=== PATIENT | female | born 1960 | race Caucasian/White ===

== ENCOUNTER 2016-10-23 19:17 | Inpatient (IN) | payer BC ==
--- NOTE | ~2016-10-23 | DS ---
Discharge Summary [facility] [address] [place]. [address] NAME: HUMAIRA GALVAN : 64 STATUS : DIS IN PAT#: [id number] AGE: 56 ADM/REG DATE : 10/23/16 MR#: [id number] REPORT SERV DATE: 11/01/16 DICTATED BY: ALBARO ARCHER DATE: 10/31/16 REPORT STATUS : Draft TRANSCRIBED BY: MODL DATE: 10/31/16 ADMISSION DATE: 10/23/2016 DISCHARGE DATE: 10/30/2016 REASON FOR ADMISSION: This is a 56-year-old female who presented to the emergency room with fevers, abdominal pain, and distention with a history of inflammatory bowel disease and Crohn's disease, as well as possible ulcerative colitis. She came in with a two-week history of persistent high-grade fevers as well as abdominal pain, bloating, and distention. In the emergency room, CT scan of the abdomen and pelvis which show large amount of semi- formed stool and redundant colon evidence for prior bowel resection. No obstruction. Findings suggested there may be some hypotonicity of the colon and did not appear to be at that time any acute inflammatory event. The patient has a history of J-pouch and proctocolectomy surgery related to her Crohn's disease. DISCHARGE DIAGNOSES: 1. Crohn's/possible ulcerative colitis. 2. Perirectal abscess, too small to drain. 3. Possible ileus. 4. Anemia. HOSPITAL COURSE: 1. Crohn's, possible ulcerative colitis. The patient as mentioned came in with fever of 101.1 with a normal white blood cell count and elevated CRP of 218. She was thought to have possible ileus after KUB on the which show nonspecific mild colonic ileus type pattern noted, and she was made n.p.o. She would then have a followup with MRI of the abdomen and pelvis due to concerns that maybe there was intraabdominal abscess given her history, there would be MRI with finding small perirectal left-sided abscess, small cleft or breakthrough of the external sphincter into the cleft suggest there is a localized fistulous communication, and so therefore, colorectal surgery Dr. Ryan Gonzales was consulted. She would see the patient, and after reviewing imaging with note that it is a less than 1 cm abscess and would be too small to drain, the abscess would later spontaneously rupture on its own. The patient was placed on IV Levaquin, and later transitioned to oral Levaquin. GI would then start the patient on IV corticosteroids given her elevated CRP, history of Crohn's and persistent symptoms and fevers. She would respond immediately to the IV corticosteroids, fevers would cease, her bloating would stop, she began having bowel movements and passing gas. Her diet was advanced and she was transitioned over to oral prednisone, so it was felt that this was some sort of inflammatory bowel flare that her issues were related to. She would complete her antibiotic therapy as well, and the patient was having semi-regular bowel movements and tolerating solid food at the time of discharge. GI would place the patient on short course of oral prednisone to finish up on for 6 more days and would have her followup in 2 to 3 weeks. DISCHARGE CONDITION: Stable. DISCHARGE MEDICATIONS: Discharge Summary [address] [address] NAME: HUMAIRA GALVAN : 64 STATUS : DIS IN PAT#: [id number] AGE: 56 ADM/REG DATE : 10/23/16 MR#: [id number] REPORT SERV DATE: 11/01/16 DICTATED BY: ALBARO ARCHER DATE: 10/31/16 REPORT STATUS : Draft TRANSCRIBED BY: LYNNE DATE: 10/31/16 1. Imuran 50 mg p.o. t.i.d. 2. Pepcid 40 mg p.o. b.i.d. 3. Wellbutrin 300 mg p.o. daily. 4. Spironolactone 100 mg to 200 mg p.o. daily. 5. Vitamin D 50,000 units p.o. every . 6. Probiotic 3 capsules p.o. t.i.d. 7. Hydrocodone 7.5/325, half tab, 4 times a day to slow bowel function. 8. Prophylactic Cipro 500 mg p.o. b.i.d. two weeks on, two weeks off. 9. Advil 400 mg p.o. daily p.r.n. 10.Prednisone 20 mg p.o. daily x2 days, then 10 mg p.o. x2 days, and 5 mg p.o. x2 days, then discontinue. 11.Dulcolax 10 mg suppository per rectum b.i.d. x3 more days. 12.One other important thing to note is that patient KUB findings were still showing ileus gas pattern at the time of discharge; however, the patient's belly was soft, nontender, tolerating oral diet and having bowel movements at the time of discharge. DISCHARGE PLAN: The patient is discharged home, followup with primary care in one to two weeks, and GI in two to three weeks. TDR/MODL Albaro Archer APN / [id number] CC: Jesus Luong M.D. Colleen Schmitt, M.D. Shauna Lorenzo-Rivero, M.D.
--- NOTE | ~2016-10-23 | CN ---
Consultation Report [facility] [address] [place]. [address] NAME: HUMAIRA GALVAN : 64 STATUS : ADM IN PAT#: [id number] AGE: 56 ADM/REG DATE : 10/23/16 MR#: [id number] REPORT SERV DATE: 10/24/16 DICTATED BY: LILLIAN PAZ DATE: 10/24/16 REPORT STATUS : Draft TRANSCRIBED BY: MODL DATE: 10/24/16 GI CONSULTATION DATE OF CONSULTATION: REASON FOR CONSULTATION: Crohn disease, possible exacerbation, and possible ileus. HISTORY OF PRESENT ILLNESS: Ms Galvan is a 56-year-old, white female, very nice lady who is a patient Dr. Maureen Kinney. She has had a history of Crohn disease, has had a proctocolectomy in the past and has J-pouch. She was having ileoscopy done in April 2014, showing ileal ulcers and also perianal fistula. The ileal ulcers were multiple. She has been on azathioprine. She has also been seen by Dr. Toussaint for perianal abscess and has had a perianal fistula. She actually has some setons to the draining areas and Dr. Toussaint has wanted to keep them there. There was concern that she might re-develop the abscesses. The patient reports normally she has four to six stools per day. Over the last couple of weeks, it has decreased to one to two per day and she has got abdominal distention. She had no vomiting. She has had some slight nausea and also there has been viral illness in the family with flu-like symptoms and she felt that she may be developing that. She has had fevers, most recent one was 101.1 in the hospital. Her white count was normal, but she does have an elevated C-reactive protein of 218. The patient reports some abdominal discomfort in the lower abdomen, as well as distention and nausea. She takes Cipro, two weeks on, two weeks off because of the history of fistula and abscess that has been prescribed by Dr. Toussaint. She also recently had a course of clindamycin for Crohn's exacerbation approximately five to six weeks ago through Dr. Kinney's office. The patient has been on Imuran, but stopped taking that a couple of weeks ago when she developed the fevers. PAST MEDICAL HISTORY: Includes Crohn disease, pouchitis, reflux, attention-deficit disorder, perirectal abscess, iron deficiency anemia, TMJ, and basal cell cancer to the skin. PAST SURGICAL HISTORY: Septoplasty, , J-pouch proctocolectomy, and anal sphincteroplasty. MEDICATIONS AT HOME: Includes Tylenol, Imuran which she stopped. Last dose 10/09/2016, Wellbutrin, Cipro, two weeks on, two weeks off, Lomotil, vitamin D, Pepcid, hydrocodone, ibuprofen, and spironolactone. ALLERGIES: INCLUDE SULFA, INAPSINE, LATEX. SHE ALSO REPORTS HAVING INTOLERANCE OF FLAGYL, WHICH CAUSES NEUROPATHY. PHYSICAL EXAMINATION: HEENT: Normocephalic, atraumatic. Extraocular muscles are intact. HEART: Regular without murmur. LUNGS: Clear to auscultation bilaterally without rales or rhonchi. Consultation Report [place] [id number] [facility] [place]. [address] NAME: HUMAIRA GALVAN : 64 STATUS : ADM IN [facility]#: [id number] AGE: 56 ADM/REG DATE : 10/23/16 MR#: [id number] REPORT SERV DATE: 10/24/16 DICTATED BY: LILLIAN PAZ DATE: 10/24/16 REPORT STATUS : Draft TRANSCRIBED BY: LYNNE DATE: 10/24/16 ABDOMEN: Bowel sounds are present, somewhat high-pitched. She has [id number] distention. There is some tenderness in left lower quadrant without rebound or guarding. NEUROLOGIC: She is alert, oriented, and answers questions appropriately. PSYCHIATRIC: Normal mood and affect. RECTAL: Performed. Slight tenderness, but it did not appear stenotic. There was noted a setons placed by Dr. Toussaint. VITAL SIGNS: Blood pressure 103/58, pulse is 98, respirations 16, temperature is 98.2, T- max was 101.1 here. LABORATORY DATA: KUB shows nonspecific ileus. No perforation. CT scan of the abdomen and pelvis was read as large amount of semiformed stools and redundant colon, which she has had a proctocolectomy, so it is small bowel that are seen. White count 5.6, hemoglobin 9.2, hematocrit 27, and platelet count 500. C-reactive protein is 218. Urinalysis showed large amount of leukocyte esterase, 10 white blood cells, and rare bacteria. IMPRESSION: 1. Pyrexia. 2. Abdominal distention and possible ileus versus Crohn's exacerbation versus gastroenteritis. 3. Elevated C-reactive protein. 4. Anemia. RECOMMENDATIONS: 1. We will empirically put her on some Levaquin daily and we will hold on Flagyl since she has neuropathy associated with Flagyl. 2. We will get an MRI of the pelvis evaluating for abscess. 3. If vomiting starts, agree with NG tube placement. 4. We will continue to hold Imuran and also we will not institute steroids at this time. We will follow with you. ACRHIE/LYNNE Lillian Paz M.D. / [id number] CC: MD Divine Edwards M.D.
--- NOTE | ~2016-10-23 | HP ---
History And Physical [facility] [address] [place]. [address] NAME: HUMAIRA GALVAN : 64 STATUS : ADM IN PAT#: [id number] AGE: 56 ADM/REG DATE : 10/23/16 MR#: [id number] REPORT SERV DATE: 10/24/16 DICTATED BY: LILLIAN ROBLES DATE: 10/23/16 REPORT STATUS : Draft TRANSCRIBED BY: MODL DATE: 10/23/16 DATE OF ADMISSION: 10/23/2016 POINT OF ENTRY: [facility] Emergency Department. PRIMARY SENIOR [employer] APPLICATION DEVELOPER: Maureen Kinney M.D. CHIEF COMPLAINT: Persistent fevers, abdominal pain, and distention. HISTORY OF PRESENT ILLNESS: Ms Galvan is a 56-year-old female with history of an inflammatory bowel disease with Crohn disease as well as possible ulcerative colitis, who presents to the emergency department today with reports of a two-week history of persistent high-grade fevers as well as abdominal pain, bloating, and distention. The patient states approximately two weeks ago she developed influenza type symptoms of fevers, muscle aches, pains, and fatigue. A course of Tamiflu was called in for her, of which she was only able to complete four days secondary to abdominal pain and distress. For the past two weeks despite use of Tamiflu she has continued to have high-grade fevers approximately 102 to 103 degrees Fahrenheit. While eating a few days ago, she started to notice some abdominal bloating and pain primarily postprandially, and over the last few days she feels as if her "gut has slowed down with decreased amount of bowel movements." She normally has four to six bowel movements a day, and over the last 48 hours has only had one to two bowel movements per day; however, they still remained to be liquid. She is still passing flatus. She does report some nausea, but denies any vomiting. Initial evaluation in the emergency department notable for the patient is afebrile with a heart rate of 111. White count within normal limits. Remainder of her labs were otherwise unremarkable. CT of the abdomen and pelvis was concerning for what Radiology call is a large redundant-appearing colon with air-fluid levels. According to Dr. Lal, the radiologist, verbally reported her that he felt that this might be a developing ileus. She was given IV fluids as well as a dose of antibiotics and admitted to the Hospitalist Service for further evaluation and management. She otherwise denies any chest pain, palpitations, shortness of breath, cough, sputum production, vomiting, dysuria, melena, hematochezia, hemoptysis, or hematemesis. She does report also some diaphoresis as well as her above-mentioned persistent fevers, abdominal bloating, pain, and distention. Comprehensive review of systems otherwise negative unless listed in the history of present illness. PREVIOUS MEDICAL HISTORY: 1. Inflammatory bowel disease with diagnosis of both the ulcer colitis as well as Crohn disease, status post total colectomy. 2. Gastroesophageal reflux disease. 3. Endometriosis. 4. History of basal cell carcinoma of the skin. History And Physical [address] [address] NAME: HUMAIRA GALVAN : 64 STATUS : ADM IN [facility]#: [id number] AGE: 56 ADM/REG DATE : 10/23/16 MR#: [id number] REPORT SERV DATE: 10/24/16 DICTATED BY: LILLIAN ROBLES DATE: 10/23/16 REPORT STATUS : Draft TRANSCRIBED BY: LYNNE DATE: 10/23/16 SURGICAL HISTORY: 1. x2. 2. Total colectomy with J-pouch. 3. Appendectomy. 4. Tubal ligation. 5. Left labial fistula and multiple anal fistula surgeries with seton placement. 6. Sinus surgery with septoplasty. 7. Shoulder and hip arthroplasty. 8. Anoplasty. 9. Arthroscopy for the hip and shoulder. ALLERGIES: TO SULFA DRUGS, LATEX, AND DROPERIDOL. HOME MEDICATIONS: 1. Tylenol 1000 mg b.i.d. 2. Imuran 50 mg t.i.d. 3. Wellbutrin 300 mg daily. 4. Ciprofloxacin 500 mg b.i.d. 5. Lomotil 2.5 mg p.r.n. 6. Vitamin D 50,000 units weekly. 7. Pepcid 40 mg b.i.d. 8. Nichols 7.5/325 mg half tablet q.i.d. 9. Advil 400 mg daily p.r.n. 10.Probiotic one tablet daily. 11.Aldactone 100 mg to 200 mg daily. SOCIAL HISTORY: Denies any tobacco, alcohol, or illicits. FAMILY MEDICAL HISTORY: Mother with history of stroke. Father with diabetes, hypertension, and coronary artery disease. Siblings with multiple sclerosis and hypertension. Of note, there are no immediate family members with inflammatory bowel disease. LABS AND IMAGIN. White count is 7.0, hemoglobin is 10.7, hematocrit is 32.6, and platelet count 531. 2. Sodium is 139, potassium 3.6, chloride 101, carbon dioxide 27, BUN 17, creatinine 0.72, glucose is 113, calcium is 8.3, protein is 6.7, albumin is 2.3, bilirubin is 0.4, ALT is 10, AST 7, alkaline phosphatase is 106. 3. CT scan of the abdomen and pelvis shows a large amount of semi-formed stool and a redundant colon evidence for prior bowel resection. No obstruction. Findings suggested there maybe some hypotonicity of colon. There does not appear to be at this time any acute inflammatory event. 4. Urinalysis: Specific gravity is 1.042 hazy with 10 white blood cells per high-powered field with large leukocyte esterase with trace ketones, and 67 red blood cells. PHYSICAL EXAMINATION: VITAL SIGNS: Temperature is 98.5 degrees Fahrenheit, pulse is 111, respirations 17, saturating 98% on room air pressure, and blood pressure 99/66, on recheck blood pressure is History And Physical [address] [address] NAME: HUMAIRA GALVAN : 64 STATUS : ADM IN [facility]#: [id number] AGE: 56 ADM/REG DATE : 10/23/16 MR#: [id number] REPORT SERV DATE: 10/24/16 DICTATED BY: LILLIAN ROBLES DATE: 10/23/16 REPORT STATUS : Draft TRANSCRIBED BY: MODL DATE: 10/23/16 now 91/64 with a heart rate of 100. GENERAL: The patient is awake and alert, in no acute distress. Resting comfortably. She is a well-developed, well-nourished, female. HEENT: Atraumatic and normocephalic. Moist mucous membranes. Pupils equal, round, reactive to light and accommodation. Extraocular eye movements intact. No scleral icterus. NECK: No jugular venous distention. No carotid bruits. CARDIAC: Regular rate and rhythm. No murmurs, rubs, or gallops. Normal S1, S2. LUNGS: Clear to auscultation bilaterally. No wheezes, rhonchi, or crackles. ABDOMEN: Soft, mildly tender to palpation in left lower quadrant. Otherwise, no rebound, guarding, or rigidity. Does have some hypoactive bowel sounds in all reyes. Otherwise, no rebound, guarding, or rigidity. EXTREMITIES: Warm and perfused. No cyanosis, clubbing, or edema. SKIN: Warm and dry. PSYCH: Affect appropriate. NEURO: Alert and oriented x3. Cranial nerves 2 through 12 grossly intact. Speech is normal. Gait not assessed. ASSESSMENT AND PLAN: Ms Galvan is a 56-year-old female, who presents with a two-week history of persistent fevers of unclear etiology as well as a few days of abdominal bloating, pain, and distention, and found on CT to have concern for possible developing small bowel ileus. PROBLEM LIST: 1. Persistent fevers, unclear etiology. 2. Possible developing ileus with abdominal pain, bloating and distention. 3. Asymptomatic pyuria. 4. History of inflammatory bowel disease on Imuran. PLAN: 1. Fevers. Persistent fevers of unclear etiology at this time. White count is within normal limits. She is afebrile here. Urinalysis does show some pyuria; however, she is asymptomatic and CT of the abdomen and pelvis was unremarkable for etiology. We will follow up blood cultures. We will also check a lactic acid, Procalcitonin, as well as ESR and CRP given lack of obvious source we will hold off on any antibiotics at this time. 2. Abdominal pain, bloating, and distention concerning for possible developing ileus. The large redundant colon with semi-formed stool in it, I think it is her J-pouch as the patient reports she has a total colectomy. Given concern for possible developing ileus we will make the patient nothing by mouth. We will consult Gastroenterology for assistance to see in the morning. We will treat supportively with IV fluids, antiemetics, and pain control. We will drop an NG tube should the patient develop any persistent vomiting. 3. Asymptomatic pyuria. The patient denies any symptoms of urinary tract infection. States she usually is very symptomatic when she does have UTI. The patient already received 1 g of IV Rocephin in the emergency department. We will hold off on any further antibiotics at this time as the patient feels that this is likely a contaminated sample given the presence of setons in the inguinal and perineal region. 4. Inflammatory bowel disease, on Imuran. There is concern for immunosuppression given History And Physical [address] [address] NAME: HUMAIRA GALVAN : 64 STATUS : ADM IN [facility]#: [id number] AGE: 56 ADM/REG DATE : 10/23/16 MR#: [id number] REPORT SERV DATE: 10/24/16 DICTATED BY: LILLIAN ROBLES DATE: 10/23/16 REPORT STATUS : Draft TRANSCRIBED BY: LYNNE DATE: 10/23/16 her history of Imuran use as well as fevers, but given clinical stability and lack of obvious source of infection we will hold off on antibiotics at this time. 5. DVT prophylaxis. Lovenox subcutaneous. CODE STATUS: The patient wished to be full code. JULIÁN/LYNNE Lillian Robles MD / [id number] CC: Jesus Espinal M.D.
--- NOTE | ~2016-10-23 | CN ---
Consultation Report [facility] [address] [place]. [address] NAME: HUMAIRA GALVAN : 64 STATUS : ADM IN PAT#: [id number] AGE: 56 ADM/REG DATE : 10/23/16 MR#: [id number] REPORT SERV DATE: 10/26/16 DICTATED BY: RAJESH PECK DATE: 10/25/16 REPORT STATUS : Draft TRANSCRIBED BY: MODL DATE: 10/25/16 GENERAL SURGERY CONSULTATION. DATE OF CONSULTATION: 10/25/2016 CHIEF COMPLAINT: Perirectal abscess. HISTORY OF PRESENT ILLNESS: This is a 56-year-old female with a significant past medical history, past surgical history of Crohn's disease, proctocolectomy with J-pouch, perianal fistula surgeries with Seton placements, and anal sphincteroplasty. The patient reports approximately 2 weeks ago, she came down with the flu, having fevers, muscle aches, pain. She attempted treatment with Tamiflu, she then subsequently started developing abdominal pain, bloating, distention. She also reports a one-week history of some perianal discomfort that was new. She was admitted to the hospital with the diagnosis of an ileus at this time, fevers of unknown etiology. She is on Levaquin, and she had been supported with IV fluids. MRI was performed which showed a small left-sided abscess at the level of the left sphincter close to anal verge approximately 1.1 x 0.92 coronal, and 1.2 x 1.2 axial and surgery was subsequently consulted. REVIEW OF SYSTEMS: All systems reviewed negative except as noted in the HPI. ALLERGIES: SULFA, INAPSINE, LATEX, FLAGYL. PAST MEDICAL HISTORY: Crohn's disease, pouchitis, reflux, ADD, perirectal abscesses, iron- deficiency anemia, TMJ, basal cell carcinoma of the skin, GERD, endometriosis. PAST SURGICAL HISTORY: Septoplasty, , J-pouch, proctocolectomy, anal sphincteroplasty, perirectal abscess, seton placement, appendectomy, tubal ligation, left labial fistula, sinus surgery septoplasty, shoulder and hip arthroplasty, fluoroscopy of the hip and shoulder. MEDICATIONS: See MAR. SOCIAL HISTORY: Denies tobacco, alcohol, or drug use. FAMILY HISTORY: Mother with cerebrovascular accident; father with diabetes, hypertension, coronary artery disease; siblings with multiple sclerosis and hypertension. No immediate family members with inflammatory bowel disease. PHYSICAL EXAMINATION: VITAL SIGNS: Temperature 98, blood pressure 105/58, pulse 86, respiratory rate 16, O2 sats 97% on room air. GENERAL: Well-developed, well-nourished, in no acute distress, white female, appears stated age. Consultation Report [place] [address] [place]. [address] NAME: HUMAIRA GALVAN : 64 STATUS : ADM IN PAT#: [id number] AGE: 56 ADM/REG DATE : 10/23/16 MR#: [id number] REPORT SERV DATE: 10/26/16 DICTATED BY: RAJESH PECK DATE: 10/25/16 REPORT STATUS : Draft TRANSCRIBED BY: LYNNE DATE: 10/25/16 HEENT: Normocephalic, atraumatic. PERRLA. EOMI. Mucous membranes moist. NECK: No lymphadenopathy. Trachea midline. CARDIOVASCULAR: Regular rate and rhythm. LUNGS: Clear auscultation bilaterally. ABDOMEN: Soft, distended, positive tympanic, minimally tender to palpation in left lower quadrant. No rebound. No guarding. No peritonitis. EXTREMITIES: No clubbing, cyanosis, edema, 2+ pulses. MUSCULOSKELETAL: Moves all extremities well. NEURO: Cranial nerves 2 through 12 are intact, AAO x3. RECTAL: Visual inspection was performed and revealed two setons loosely in place. No purulent drainage was noted. No induration or erythema. LABORATORY DATA: White blood cell count 4.3, hematocrit 26.8, platelets 499. Sodium 137, potassium 3.5, chloride 101, bicarb 29, BUN 6, creatinine 0.36, glucose 65, calcium 7.6, magnesium 1.6, albumin 1.8. ALT is normal. Blood cultures negative. Urine culture greater than 100,000 colony count with Staph, AGG negative. MRI as noted in the HPI. ASSESSMENT AND PLAN: This is a 56-year-old female with Crohn's disease and presents with an ileus, fevers of unknown etiology and perirectal abscess was seen by MRI. 1. Continue antibiotics with IV fluid resuscitate and symptomatic treatment. 2. We will discuss with Dr. Toussaint if any surgical intervention is necessary at this time. DICTATED BY: MD IVÁN Park/LYNNE Rajesh Peck M.D. / [id number] CC: MD Divine Edwards M.D.
[2016-10-23 13:31] LABS: HEMATOCRIT 32.6 % (36.0-48.0); HEMOGLOBIN 10.7 g/dL (12.0-16.0); MEAN CORPUS HGB CONC 32.8 g/dL (32.0-36.0); MEAN CORPUSCULAR HEMOGLOB 28.8 pg (26.0-34.0); MEAN PLATELET VOLUME 8.2 fL (9.2-13.0); RBC DISTRIBUTION WIDTH 15.1 % (12.0-16.0); RED CELL COUNT 3.72 10/6/uL (4.0-5.6)
[2016-10-23 13:32] LABS: MEAN CORPUSCULAR VOLUME 87.6 fL (80-100); PLATELET COUNT 531 10/3/uL (150-400)
[2016-10-23 13:33] LABS: MANUAL DIFF YES %
[2016-10-23 13:37] LABS: ASCORBIC ACID (UR NOT ORDER) NEG (NEG); BILIRUBIN, URINE MODERATE (NEG); ER URINALYSIS TAT 0 Hrs 12 Mins; KETONE, URINE TRACE MG/DL (NEG); LEUKOCYTE ESTERASE(NOT OR LARGE (NEG); NITRITE (URINE) NEG (NEG); WBC (NOT ORDERED) (RFLEX) 10 (0-5)
[2016-10-23 13:46] LABS: BUN (BLOOD UREA NITROGEN) 17 MG/DL (6-23); CALCIUM, SERUM 8.3 MG/DL (8.5-10.4); CHLORIDE, SERUM 101 MMOL/L (96-112); CO2 (CARBON DIOXIDE) 27 MMOL/L (24-34); CREATININE 0.72 MG/DL (0.55-1.02); GFR AFRICAN AMERICAN 110 ML/MIN (>=60); GFR NON AFRICAN AMERICAN 95 ML/MIN (>=60); GLUCOSE, SERUM 113 MG/DL (60-99); POTASSIUM, SERUM 3.6 MMOL/L (3.5-5.3); SGOT(AST) 7 U/L (5-40); SGPT(ALT) 10 U/L (5-65); SODIUM, SERUM 139 MMOL/L (135-148); TOTAL BILIRUBIN 0.4 MG/DL (0-1.2); TOTAL PROTEIN 6.7 G/DL (6.0-8.5)
[2016-10-23 13:47] LABS: A/G RATIO 0.5 (0.7-1.9); ALBUMIN 2.3 G/DL (3.5-5.0); ALKALINE PHOSPHATASE 106 U/L (45-117); GLOBULIN 4.4 G/DL (2.5-4.1)
[2016-10-23 13:57] LABS: BAND NEUTROPHILS 8 %; EOSINOPHILS 3 %; EOSINOPHILS ABSOLUTE (CALC) 0.21 10/3/uL (0.0-0.53); ER DIFF TAT 0 Hrs 32 Mins; LYMPHOCYTES 12 %; LYMPHOCYTES ABSOLUTE (CALC) 0.84 10/3/uL (0.67-4.30); MONOCYTES 12 %; MONOCYTES ABSOLUTE (CALC) 0.84 10/3/uL (0.21-1.20); NEUTROPHILS ABSOLUTE (CALC) 5.11 10/3/uL (2.02-8.40); PLATELET ESTIMATE SLT INC (ADEQUATE); SEGMENTED NEUTROPHIL (0) 65 %; TOTAL NUCLEATED CELLS 100
[2016-10-23 13:59] LABS: BURR CELLS 1+ (3-10/OIF) (0-2/OIF); HYPOCHROMIA 1+ (3-10/OIF) (0-2/OIF); OVALOCYTES 1+ (3-10/OIF) (0-2/OIF)
[2016-10-23 18:10] LABS: DIRECT BILIRUBIN < 0.1 MG/DL (0.0-0.4); INDIRECT BILIRUBIN(NOT ORDER) 0.3 MG/DL (0.1-0.9)
[~2016-10-23 19:17] MED LIST: ADDERXR30 PO; ALDARA TOP; ATRONASAL3 NAS; AUG875 PO; CENTRUM TAB1 TAB PO; CIMZIA SC; CIP5 PO; COMBIVENT INH; IMU PO; LEVAQUIN5T PO; LOM PO; LORT7 PO; NASONEX NAS; PRILOSEC40 MG PO; SPIRO25 PO; SPIRO50 PO; VITAMIN D31000 UNIT PO; VYVANSE50 MG OR; WELLSR150 PO; WELLXL300 PO
[2016-10-23] MEDS ORDERED: LOM PO (22:48)
[2016-10-23] MEDS ORDERED: IMU PO (22:49)
[2016-10-23] MEDS ORDERED: WELLXL300 PO (22:49)
[2016-10-23] MEDS ORDERED: SPIR100 PO (22:49)
[2016-10-23] MEDS ORDERED: PEPCID40 MG PO (22:49)
[2016-10-23] MEDS ORDERED: PROBIOTIC PO (22:50)
[2016-10-23] MEDS ORDERED: VITD PO (22:50)
[2016-10-23] MEDS ORDERED: NORCO1 TA2 PO (22:50)
[2016-10-23] MEDS ORDERED: ACET500CAP PO (22:51)
[2016-10-23] MEDS ORDERED: CIP5 PO (22:51)
[2016-10-23] MEDS ORDERED: ADVIL PO (22:51)
[2016-10-24 00:02] LABS: LACTATE 0.9 MMOL/L (0.3-2.4)
[2016-10-24 04:21] LABS: CALCIUM, SERUM 7.6 MG/DL (8.5-10.4); CHLORIDE, SERUM 102 MMOL/L (96-112); CO2 (CARBON DIOXIDE) 27 MMOL/L (24-34); CREATININE 0.57 MG/DL (0.55-1.02); GFR AFRICAN AMERICAN 122 ML/MIN (>=60); GFR NON AFRICAN AMERICAN 105 ML/MIN (>=60); GLUCOSE, SERUM 96 MG/DL (60-99); POTASSIUM, SERUM 3.5 MMOL/L (3.5-5.3); SODIUM, SERUM 139 MMOL/L (135-148)
[2016-10-24 04:22] LABS: BUN (BLOOD UREA NITROGEN) 12 MG/DL (6-23)
[2016-10-24 04:23] LABS: BASOPHILS 0.2 %; BASOPHILS ABSOLUTE 0.01 10/3/uL (0.0-0.16); EOSINOPHILS 0.9 %; EOSINOPHILS ABSOLUTE 0.05 10/3/uL (0.0-0.53); HEMATOCRIT 27.7 % (36.0-48.0); HEMOGLOBIN 9.2 g/dL (12.0-16.0); IMMATURE GRANULOCYTES 1.2 %; IMMATURE GRANULOCYTES ABSOLUTE 0.07 10/3/uL (0.0-0.11); LYMPHOCYTES 9.6 %; LYMPHOCYTES ABSOLUTE 0.54 10/3/uL (0.67-4.30); MANUAL DIFF NO %; MEAN CORPUS HGB CONC 33.2 g/dL (32.0-36.0); MEAN CORPUSCULAR HEMOGLOB 29.1 pg (26.0-34.0); MEAN CORPUSCULAR VOLUME 87.7 fL (80-100); MEAN PLATELET VOLUME 8.2 fL (9.2-13.0); MONOCYTES 19.2 %; MONOCYTES ABSOLUTE 1.08 10/3/uL (0.21-1.20); NEUTROPHILS 68.9 %; NEUTROPHILS ABSOLUTE 3.87 10/3/uL (2.02-8.40); PLATELET COUNT 500 10/3/uL (150-400); RBC DISTRIBUTION WIDTH 15.4 % (12.0-16.0); RED CELL COUNT 3.16 10/6/uL (4.0-5.6); WHITE BLOOD CELLS 5.6 10/3/uL (4.5-10.5)
[2016-10-24 05:37] LABS: SED RATE 40 MM/HR (0-20)
[2016-10-25 05:12] LABS: BASOPHILS 0.5 %; BASOPHILS ABSOLUTE 0.02 10/3/uL (0.0-0.16); EOSINOPHILS 2.1 %; EOSINOPHILS ABSOLUTE 0.09 10/3/uL (0.0-0.53); HEMATOCRIT 26.8 % (36.0-48.0); HEMOGLOBIN 8.6 g/dL (12.0-16.0); IMMATURE GRANULOCYTES 0.9 %; IMMATURE GRANULOCYTES ABSOLUTE 0.04 10/3/uL (0.0-0.11); LYMPHOCYTES 16.4 %; LYMPHOCYTES ABSOLUTE 0.71 10/3/uL (0.67-4.30); MANUAL DIFF NO %; MEAN CORPUS HGB CONC 32.1 g/dL (32.0-36.0); MEAN CORPUSCULAR HEMOGLOB 27.9 pg (26.0-34.0); MEAN PLATELET VOLUME 8.2 fL (9.2-13.0); MONOCYTES 14.5 %; MONOCYTES ABSOLUTE 0.63 10/3/uL (0.21-1.20); NEUTROPHILS 65.6 %; NEUTROPHILS ABSOLUTE 2.85 10/3/uL (2.02-8.40); PLATELET COUNT 499 10/3/uL (150-400); RBC DISTRIBUTION WIDTH 15.2 % (12.0-16.0); RED CELL COUNT 3.08 10/6/uL (4.0-5.6); WHITE BLOOD CELLS 4.3 10/3/uL (4.5-10.5)
[2016-10-25 05:27] LABS: A/G RATIO 0.5 (0.7-1.9); ALBUMIN 1.8 G/DL (3.5-5.0); ALKALINE PHOSPHATASE 84 U/L (45-117); BUN (BLOOD UREA NITROGEN) 6 MG/DL (6-23); CALCIUM, SERUM 7.6 MG/DL (8.5-10.4); CHLORIDE, SERUM 101 MMOL/L (96-112); CO2 (CARBON DIOXIDE) 21 MMOL/L (24-34); CREATININE 0.36 MG/DL (0.55-1.02); GFR AFRICAN AMERICAN 142 ML/MIN (>=60); GFR NON AFRICAN AMERICAN 122 ML/MIN (>=60); GLOBULIN 3.7 G/DL (2.5-4.1); GLUCOSE, SERUM 65 MG/DL (60-99); POTASSIUM, SERUM 3.5 MMOL/L (3.5-5.3); SGOT(AST) 9 U/L (5-40); SGPT(ALT) 7 U/L (5-65); SODIUM, SERUM 137 MMOL/L (135-148); TOTAL BILIRUBIN 0.5 MG/DL (0-1.2); TOTAL PROTEIN 5.5 G/DL (6.0-8.5)
[2016-10-26 04:46] LABS: BASOPHILS 0.2 %; BASOPHILS ABSOLUTE 0.01 10/3/uL (0.0-0.16); EOSINOPHILS 0.9 %; EOSINOPHILS ABSOLUTE 0.04 10/3/uL (0.0-0.53); HEMATOCRIT 27.3 % (36.0-48.0); HEMOGLOBIN 8.9 g/dL (12.0-16.0); IMMATURE GRANULOCYTES 1.3 %; IMMATURE GRANULOCYTES ABSOLUTE 0.06 10/3/uL (0.0-0.11); LYMPHOCYTES 10.2 %; LYMPHOCYTES ABSOLUTE 0.46 10/3/uL (0.67-4.30); MEAN CORPUS HGB CONC 32.6 g/dL (32.0-36.0); MEAN CORPUSCULAR HEMOGLOB 28.2 pg (26.0-34.0); MEAN CORPUSCULAR VOLUME 86.4 fL (80-100); MONOCYTES 17.1 %; MONOCYTES ABSOLUTE 0.77 10/3/uL (0.21-1.20); NEUTROPHILS 70.3 %; NEUTROPHILS ABSOLUTE 3.16 10/3/uL (2.02-8.40); PLATELET COUNT 496 10/3/uL (150-400); RBC DISTRIBUTION WIDTH 15.1 % (12.0-16.0); RED CELL COUNT 3.16 10/6/uL (4.0-5.6); WHITE BLOOD CELLS 4.5 10/3/uL (4.5-10.5)
[2016-10-26 04:50] LABS: MANUAL DIFF NO %
[2016-10-26 05:07] LABS: A/G RATIO 0.5 (0.7-1.9); ALBUMIN 1.8 G/DL (3.5-5.0); ALKALINE PHOSPHATASE 81 U/L (45-117); BUN (BLOOD UREA NITROGEN) 3 MG/DL (6-23); CALCIUM, SERUM 7.1 MG/DL (8.5-10.4); CHLORIDE, SERUM 101 MMOL/L (96-112); CO2 (CARBON DIOXIDE) 23 MMOL/L (24-34); CREATININE 0.48 MG/DL (0.55-1.02); GFR AFRICAN AMERICAN 129 ML/MIN (>=60); GFR NON AFRICAN AMERICAN 111 ML/MIN (>=60); GLOBULIN 3.7 G/DL (2.5-4.1); POTASSIUM, SERUM 3.1 MMOL/L (3.5-5.3); SGOT(AST) 9 U/L (5-40); SGPT(ALT) 9 U/L (5-65); SODIUM, SERUM 136 MMOL/L (135-148); TOTAL BILIRUBIN 0.3 MG/DL (0-1.2); TOTAL PROTEIN 5.5 G/DL (6.0-8.5)
[2016-10-26 05:10] LABS: GLUCOSE, SERUM 139 MG/DL (60-99)
[2016-10-27 04:24] LABS: BASOPHILS 0 %; EOSINOPHILS 0 %; IMMATURE GRANULOCYTES 1.3 %; IMMATURE GRANULOCYTES ABSOLUTE 0.04 10/3/uL (0.0-0.11); LYMPHOCYTES 6.4 %; MEAN CORPUS HGB CONC 32.8 g/dL (32.0-36.0); MEAN CORPUSCULAR HEMOGLOB 28.9 pg (26.0-34.0); MEAN CORPUSCULAR VOLUME 88.2 fL (80-100); MEAN PLATELET VOLUME 8.7 fL (9.2-13.0); MONOCYTES 4.2 %; MONOCYTES ABSOLUTE 0.13 10/3/uL (0.21-1.20); NEUTROPHILS 88.1 %; NEUTROPHILS ABSOLUTE 2.74 10/3/uL (2.02-8.40); PLATELET COUNT 542 10/3/uL (150-400); RBC DISTRIBUTION WIDTH 15.4 % (12.0-16.0); RED CELL COUNT 3.46 10/6/uL (4.0-5.6); WHITE BLOOD CELLS 3.1 10/3/uL (4.5-10.5)
[2016-10-27 04:25] LABS: HEMATOCRIT 30.5 % (36.0-48.0); MANUAL DIFF NO %
[2016-10-27 04:39] LABS: BUN (BLOOD UREA NITROGEN) 3 MG/DL (6-23); CALCIUM, SERUM 7.9 MG/DL (8.5-10.4); CHLORIDE, SERUM 107 MMOL/L (96-112); CO2 (CARBON DIOXIDE) 24 MMOL/L (24-34); CREATININE 0.81 MG/DL (0.55-1.02); GFR AFRICAN AMERICAN 95 ML/MIN (>=60); GFR NON AFRICAN AMERICAN 82 ML/MIN (>=60); POTASSIUM, SERUM 3.7 MMOL/L (3.5-5.3)
[2016-10-27 04:40] LABS: GLUCOSE, SERUM 196 MG/DL (60-99); SODIUM, SERUM 143 MMOL/L (135-148)
[2016-10-28 04:58] LABS: BASOPHILS 0 %; EOSINOPHILS 0 %; HEMATOCRIT 28.5 % (36.0-48.0); HEMOGLOBIN 9.1 g/dL (12.0-16.0); IMMATURE GRANULOCYTES 1.6 %; LYMPHOCYTES 5.1 %; LYMPHOCYTES ABSOLUTE 0.32 10/3/uL (0.67-4.30); MEAN CORPUS HGB CONC 31.9 g/dL (32.0-36.0); MEAN CORPUSCULAR HEMOGLOB 28.7 pg (26.0-34.0); MEAN CORPUSCULAR VOLUME 89.9 fL (80-100); MEAN PLATELET VOLUME 8.3 fL (9.2-13.0); MONOCYTES 12.5 %; MONOCYTES ABSOLUTE 0.78 10/3/uL (0.21-1.20); NEUTROPHILS 80.8 %; NEUTROPHILS ABSOLUTE 5.04 10/3/uL (2.02-8.40); PLATELET COUNT 584 10/3/uL (150-400); RBC DISTRIBUTION WIDTH 15.4 % (12.0-16.0); RED CELL COUNT 3.17 10/6/uL (4.0-5.6)
[2016-10-28 04:59] LABS: MANUAL DIFF NO %; WHITE BLOOD CELLS 6.2 10/3/uL (4.5-10.5)
[2016-10-28 05:14] LABS: CALCIUM, SERUM 7.9 MG/DL (8.5-10.4); CHLORIDE, SERUM 107 MMOL/L (96-112); CO2 (CARBON DIOXIDE) 23 MMOL/L (24-34); CREATININE 0.86 MG/DL (0.55-1.02); GFR AFRICAN AMERICAN 89 ML/MIN (>=60); GFR NON AFRICAN AMERICAN 77 ML/MIN (>=60); POTASSIUM, SERUM 3.3 MMOL/L (3.5-5.3); SODIUM, SERUM 143 MMOL/L (135-148)
[2016-10-28 05:19] LABS: BUN (BLOOD UREA NITROGEN) 7 MG/DL (6-23); GLUCOSE, SERUM 124 MG/DL (60-99)
[2016-10-29 07:40] LABS: HEMATOCRIT 26.2 % (36.0-48.0); HEMOGLOBIN 8.2 g/dL (12.0-16.0); MEAN CORPUS HGB CONC 31.3 g/dL (32.0-36.0); MEAN CORPUSCULAR HEMOGLOB 27.8 pg (26.0-34.0); MEAN CORPUSCULAR VOLUME 88.8 fL (80-100); MEAN PLATELET VOLUME 8.1 fL (9.2-13.0); PLATELET COUNT 462 10/3/uL (150-400); RBC DISTRIBUTION WIDTH 15.8 % (12.0-16.0); RED CELL COUNT 2.95 10/6/uL (4.0-5.6)
[2016-10-29 07:41] LABS: MANUAL DIFF YES %
[2016-10-29 08:04] LABS: BUN (BLOOD UREA NITROGEN) 8 MG/DL (6-23); CALCIUM, SERUM 7.8 MG/DL (8.5-10.4); CHLORIDE, SERUM 107 MMOL/L (96-112); CO2 (CARBON DIOXIDE) 26 MMOL/L (24-34); CREATININE 0.62 MG/DL (0.55-1.02); GFR AFRICAN AMERICAN 118 ML/MIN (>=60); GFR NON AFRICAN AMERICAN 102 ML/MIN (>=60); GLUCOSE, SERUM 93 MG/DL (60-99); POTASSIUM, SERUM 3.8 MMOL/L (3.5-5.3); SODIUM, SERUM 142 MMOL/L (135-148)
[2016-10-29 08:54] LABS: BAND NEUTROPHILS 6 %; IMMATURE GRANS ABSOLUTE (CALC) 0.24 10/3/uL (0.0-0.11); LYMPHOCYTES 10 %; METAMYELOCYTES 4 %; MONOCYTES 2 %; MONOCYTES ABSOLUTE (CALC) 0.12 10/3/uL (0.21-1.20); NEUTROPHILS ABSOLUTE (CALC) 5.04 10/3/uL (2.02-8.40); SEGMENTED NEUTROPHIL (0) 78 %; TOTAL NUCLEATED CELLS 100
[2016-10-29 08:58] LABS: OVALOCYTES 1+ (3-10/OIF) (0-2/OIF); PLATELET ESTIMATE SLT INC (ADEQUATE); POIKILOCYTOSIS 1+ (5-10/OIF) (0-5/OIF)
[2016-10-29 08:59] LABS: POLYCHROMASIA 1+ (2-5/OIF) (0-1/OIF)
[2016-10-29 11:04] LABS: % IRON SAT 22 % (20-50); FERRITIN 178 NG/ML (8-252); IRON BINDING CAPACITY 167 MCG/DL (225-410); IRON, SERUM 36 MCG/DL (35-150)
[2016-10-30 06:06] LABS: HEMATOCRIT 26.6 % (36.0-48.0); HEMOGLOBIN 8.2 g/dL (12.0-16.0); MEAN CORPUS HGB CONC 30.8 g/dL (32.0-36.0); MEAN CORPUSCULAR VOLUME 90.8 fL (80-100); MEAN PLATELET VOLUME 8.5 fL (9.2-13.0); PLATELET COUNT 494 10/3/uL (150-400); RBC DISTRIBUTION WIDTH 16.1 % (12.0-16.0); RED CELL COUNT 2.93 10/6/uL (4.0-5.6); WHITE BLOOD CELLS 5.8 10/3/uL (4.5-10.5)
[2016-10-30 06:07] LABS: MANUAL DIFF YES %
[2016-10-30 06:16] LABS: BUN (BLOOD UREA NITROGEN) 10 MG/DL (6-23); CALCIUM, SERUM 8.1 MG/DL (8.5-10.4); CHLORIDE, SERUM 104 MMOL/L (96-112); CO2 (CARBON DIOXIDE) 28 MMOL/L (24-34); GFR AFRICAN AMERICAN 120 ML/MIN (>=60); GFR NON AFRICAN AMERICAN 103 ML/MIN (>=60); GLUCOSE, SERUM 82 MG/DL (60-99); POTASSIUM, SERUM 3.8 MMOL/L (3.5-5.3); SODIUM, SERUM 142 MMOL/L (135-148)
[2016-10-30 07:19] LABS: BAND NEUTROPHILS 10 %; HYPOCHROMIA 1+ (3-10/OIF) (0-2/OIF); IMMATURE GRANS ABSOLUTE (CALC) 0.23 10/3/uL (0.0-0.11); LYMPHOCYTES 7 %; LYMPHOCYTES ABSOLUTE (CALC) 0.41 10/3/uL (0.67-4.30); METAMYELOCYTES 4 %; MONOCYTES 11 %; MONOCYTES ABSOLUTE (CALC) 0.64 10/3/uL (0.21-1.20); NEUTROPHILS ABSOLUTE (CALC) 4.52 10/3/uL (2.02-8.40); PLATELET ESTIMATE SLT INC (ADEQUATE); SEGMENTED NEUTROPHIL (0) 68 %; TOTAL NUCLEATED CELLS 100
[2016-10-30 07:20] LABS: MICROCYTES 1+ (5-10/OIF) (0-5/OIF)
[2016-10-30] MEDS ORDERED: P20 PO (09:55)
[2016-10-30] MEDS ORDERED: P10 PO (09:57)
[2016-10-30] MEDS ORDERED: P5 PO (09:58)
[2016-10-30] MEDS ORDERED: BISR PR (09:59)
== END 2016-10-30 12:22 | disposition home or self-care (01) | DRG 386 ==
LOC: ER 19:17 → 7NO 23:31
PROVIDERS: Emergency Medicine; Hospitalist; Internal Medicine; Nurse Practitioner Acute Care; Nurse Practitioner Family; Nurse Practitioner Gerontology
DX: K50.90 Crohn's disease, unspecified, without complications (principal); K61.2 Anorectal abscess; K56.7 Ileus, unspecified; K21.9 Gastro-esophageal reflux disease without esophagitis; Z90.49 Acquired absence of other specified parts of digestive tract; F98.8 Other specified behavioral and emotional disorders with onset usually occurring in childhood and adolescence; D50.9 Iron deficiency anemia, unspecified; Z85.828 Personal history of other malignant neoplasm of skin; Z96.649 Presence of unspecified artificial hip joint; Z96.619 Presence of unspecified artificial shoulder joint; Z82.3 Family history of stroke; Z83.3 Family history of diabetes mellitus; Z82.49 Family history of ischemic heart disease and other diseases of the circulatory system; Z88.2 Allergy status to sulfonamides; Z91.040 Latex allergy status; Z88.8 Allergy status to other drugs, medicaments and biological substances
CPT/HCPCS: 71010; 72195; 74000; 74177; 80048; 80053; 81001; 82150; 82248; 82728; 82962; 83540; 83550; 83605; 83690; 83735; 84100; 84145; 85025; 85652; 86140; 87040; 87086; 96374; 99285; A9270-GY; C9113; J1170; J1956; J2405; J2550; J2920; J7500; Q9967